=== PATIENT | female | born 1980 | race African-American/Black ===

== ENCOUNTER 2020-05-16 13:22 | Inpatient (IN) | payer MEDICAID ==
[~2020-05-16] VITALS: Ht 170.2 cm; Wt 81.6 kg
[~2020-05-16 13:22] MED LIST: ALBU18; ATOM25CA; DIPH25CA6; FLUO40CA
[2020-05-16] MEDS ORDERED: IPRATROPIUM BROM 0.5 MG/2.5ML INH SOL NEB ONE (13:30)
[2020-05-16] MEDS ORDERED: methylPREDNISolone SOD SUCC 125 MG/2 ML VL IV ONE (13:30)
[2020-05-16] MEDS ORDERED: cefTRIAXone 1GM/50ML D5W 50 ML IV ONE (13:30)
[2020-05-16] MEDS ORDERED: ALBUTEROL SULF 2.5 MG/0.5ML(0.5%) NEB SOLN NEB ONE (13:30)
[2020-05-16] MEDS ORDERED: SODIUM CHLORIDE 0.9% 1,000 ML IV ONE (13:30)
[2020-05-16] MEDS ORDERED: MAGNESIUM SULFATE 1GM/100ML 100 ML IV ONE (14:00)
[2020-05-16] MEDS ORDERED: LORazepam 2MG/ML-1ML VIAL IV ONE (14:30)
[2020-05-16 15:16] LABS: Basophils # (auto) 0 10 ^3/uL (0-0.2); Basophils % (auto) 0.2 % (0.0-2.0); Eosinophils # (auto) 0 10 ^3/uL (0-0.8); Eosinophils % (auto) 0.9 % (0.0-7.0); Hematocrit 38.3 % (36.0-46.0); Hemoglobin 12.9 g/dL (12.2-16.2); Lymphocytes # (auto) 1.6 10 ^3/uL (0.4-5.4); Lymphocytes % (auto) 34.4 % (10.0-50.0); Mean Corpuscular Hemoglobin 30.8 pg (28.0-32.0); Mean Corpuscular Hgb Conc. 33.6 g/dL (32.0-36.0); Mean Corpuscular Volume 91.5 fL (80.0-100.0); Monocytes # (auto) 0.5 10 ^3/uL (0-1.3); Monocytes % (auto) 10.5 % (0.0-12.0); Neutrophils # (auto) 2.5 10 ^3/uL (1.6-8.6); Platelet Count (auto) 234 10^3/uL (140-450); Red Blood Cells 4.19 10^6/uL (4.0-5.20); Red Cell Distribution Width 13.9 % (11.8-14.3); White Blood Cell 4.6 10^3/uL (4.4-10.8)
[2020-05-16 15:32] LABS: Alanine Aminotransferase 54 U/L (13-56); Albumin 3.6 g/dL (3.4-5.0); Anion Gap 11 (5-15); Aspartate Aminotransferase 73 U/L (15-37); BUN/Creatinine Ratio 6.2; Blood Urea Nitrogen 4 mg/dL (7-18); Calcium 8.1 mg/dL (8.5-10.1); Carbon Dioxide 21 mmol/L (21-32); Chloride 107 mmol/L (98-107); GFR African American 129 mL/min; GFR Non-African American 107 mL/min; Glucose 94 mg/dL (74-106); Sodium 139 mmol/L (136-145)
[2020-05-16 15:37] LABS: Alkaline Phosphatase 85 U/L (45-117); Bilirubin, Total 0.2 mg/dL (0.2-1.0); Total Protein 7.8 g/dL (6.4-8.2)
[2020-05-16 15:44] LABS: Potassium 2.9 mmol/L (3.5-5.1)
[2020-05-16] MEDS ORDERED: POTASSIUM EFFERVESENT TAB 25 MEQ PO ONE (16:00)
[2020-05-16] MEDS ORDERED: ACETAMINOPHEN 500 MG TAB PO PRN (16:45)
[2020-05-16] MEDS ORDERED: ALBUTEROL SULF HFA 90MCG INH 200DOSE IN PRN (16:45)
[2020-05-16 19:09] LABS: Magnesium 2.1 mg/dL (1.6-2.6)
[2020-05-16 19:18] LABS: CRP High Sensitivity 2.32 mg/dL (< 0.3)
[2020-05-16] MEDS ORDERED: MORPHINE SULF INJ 2 MG/ML SYRINGE 1ML IV PRN (20:00)
[2020-05-16] MEDS ORDERED: NITROGLYCERIN 0.4 MG SL TAB SL PRN (20:00)
[2020-05-16 20:20] LABS: Urine Bacteria FEW /hpf (None Seen); Urine Blood 3+ /uL (Negative); Urine Specific Gravity 1.005 (1.001-1.035); Urine WBC <1 /hpf (0 - 5)
[2020-05-16] MEDS: FAMOTIDINE 20 MG TAB PO SCH (21:55)
[2020-05-16] MEDS: ENOXAPARIN SOD 40 MG/0.4 ML SYRINGE SC SCH (21:56)
[2020-05-16] MEDS: DOXYCYCLINE 100MG/250ML 250 ML IV SCH (21:56)
[2020-05-16] MEDS: BUDESONIDE (INHALATION) 180 MCG IH IN SCH (22:00)
[2020-05-17] MEDS: HYDROcodone-ACET 5/325MG TAB PO PRN ×4 (00:32→21:01)
[2020-05-17] MEDS: BUDESONIDE (INHALATION) 180 MCG IH IN SCH (06:10)
[2020-05-17 06:29] LABS: Basophils # (auto) 0 10 ^3/uL (0-0.2); Basophils % (auto) 0.1 % (0.0-2.0); Eosinophils # (auto) 0 10 ^3/uL (0-0.8); Hematocrit 36.1 % (36.0-46.0); Hemoglobin 12.1 g/dL (12.2-16.2); Lymphocytes # (auto) 0.5 10 ^3/uL (0.4-5.4); Lymphocytes % (auto) 6.8 % (10.0-50.0); Mean Corpuscular Hemoglobin 30.4 pg (28.0-32.0); Mean Corpuscular Hgb Conc. 33.4 g/dL (32.0-36.0); Mean Corpuscular Volume 91.1 fL (80.0-100.0); Monocytes # (auto) 0.2 10 ^3/uL (0-1.3); Monocytes % (auto) 2.5 % (0.0-12.0); Neutrophils # (auto) 6.7 10 ^3/uL (1.6-8.6); Neutrophils % (auto) 90.6 % (37.0-80.0); Platelet Count (auto) 239 10^3/uL (140-450); Red Blood Cells 3.96 10^6/uL (4.0-5.20); Red Cell Distribution Width 13.9 % (11.8-14.3); White Blood Cell 7.4 10^3/uL (4.4-10.8)
[2020-05-17 06:55] LABS: Albumin 3.1 g/dL (3.4-5.0)
[2020-05-17 07:27] LABS: BUN/Creatinine Ratio 7.6; Calcium 8.4 mg/dL (8.5-10.1)
[2020-05-17 07:35] LABS: Bilirubin, Total 0.2 mg/dL (0.2-1.0); Total Protein 7.2 g/dL (6.4-8.2)
[2020-05-17] MEDS ORDERED: CHOLECALCIFEROL (VITD3) 2,000 UNIT CAP PO SCH (10:00)
[2020-05-17] MEDS ORDERED: ASCORBIC ACID 1,000 MG TAB PO SCH (10:00)
[2020-05-17] MEDS ORDERED: DexAMETHasone SOD PHOS 10MG/1ML VIAL INJ IV SCH (10:00)
[2020-05-17] MEDS ORDERED: ZINC SULFATE 220mg CAP or TAB PO SCH (10:00)
[2020-05-17] MEDS: FAMOTIDINE 20 MG TAB PO SCH ×2 (12:56→22:00)
[2020-05-17] MEDS: DOXYCYCLINE 100MG/250ML 250 ML IV SCH (12:56)
[2020-05-17] MEDS: ENOXAPARIN SOD 40 MG/0.4 ML SYRINGE SC SCH ×2 (13:40→22:00)
[2020-05-17] MEDS ORDERED: IPRATROPIUM BROM 0.5 MG/2.5ML INH SOL NEB SCH (14:00)
[2020-05-17] MEDS ORDERED: ALBUTEROL SULF 2.5 MG/0.5ML(0.5%) NEB SOLN NEB SCH (14:00)
[2020-05-17] MEDS: methylPREDNISolone SOD SUCC 40 MG/ML VL IV SCH (18:17)
[2020-05-17] MEDS: ALPRAZolam 0.5 MG TAB PO PRN (20:06)
[2020-05-17] MEDS ORDERED: ALBUTEROL SULF 2.5 MG/0.5ML(0.5%) NEB SOLN NEB PRN (22:00)
[2020-05-17] MEDS ORDERED: IPRATROPIUM BROM 0.5 MG/2.5ML INH SOL NEB PRN (22:00)
[2020-05-18] MEDS: methylPREDNISolone SOD SUCC 40 MG/ML VL IV SCH ×4 (06:00→18:00)
[2020-05-18] MEDS: ENOXAPARIN SOD 40 MG/0.4 ML SYRINGE SC SCH (09:49)
[2020-05-18] MEDS: FAMOTIDINE 20 MG TAB PO SCH (09:49)
[2020-05-18] MEDS: ALPRAZolam 0.5 MG TAB PO PRN (12:06)
[2020-05-18] MEDS ORDERED: ALBU1.257 IN (16:16)
[2020-05-18] MEDS ORDERED: DOXY-338 PO (16:16)
[2020-05-18] MEDS ORDERED: PRED20TA2 PO (16:16)
[2020-05-18] MEDS ORDERED: FAMO20TA10 PO (16:16)
[2020-05-18] MEDS ORDERED: IPRIH IN (16:16)
[2020-05-18] MEDS ORDERED: MONT10TA23 PO (16:17)
[2020-05-18 16:49] VITALS: BP 126/81
== END 2020-05-18 18:14 | disposition home or self-care (01) | DRG 141 ==
LOC: ER 13:22 → EDBD 13:22 → OVERFLOW 13:23
PROVIDERS: ADMIT Hospitalist; ATTEND Hospitalist
PROC: 5A09357 Assistance with Respiratory Ventilation, Less than 24 Consecutive Hours, Continuous Positive Airway Pressure (ICD-10-PCS; principal; 2020-05-16)
DX: J45.51 Severe persistent asthma with (acute) exacerbation (principal); J96.00 Acute respiratory failure, unspecified whether with hypoxia or hypercapnia; E87.6 Hypokalemia; F41.9 Anxiety disorder, unspecified; J98.11 Atelectasis; Z83.3 Family history of diabetes mellitus; G89.29 Other chronic pain; E66.9 Obesity, unspecified; Z68.28 Body mass index [BMI] 28.0-28.9, adult; Z20.828 Contact with and (suspected) exposure to other viral communicable diseases
CPT/HCPCS: 36415; 36600; 71045; 74176; 80053; 81001; 82728; 82805; 83036; 83735; 84484; 85025; 85379; 86141; 87426; 87804; 94640; 94660; 96365; 96367; 96375; 99291; G0378; J0696; J3490

== ENCOUNTER 2023-11-12 21:41 | Inpatient (IN) | payer MEDICAID ==
[~2023-11-12] VITALS: Ht 167.6 cm; Wt 79.9 kg
[~2023-11-12 21:41] MED LIST changes: +ALBU1.258 IN; +DIPH-753; -DIPH25CA6; +DOXY-447 PO; +FAMO20TA10 PO; +IPRIH IN; +MONT10TA23 PO; +PRED20TA2 PO
[2023-11-12] MEDS: IPRATROPIUM BROM 0.5 MG/2.5ML INH SOL ONE (22:01)
[2023-11-12] MEDS: LORazepam 2MG/ML-1ML VIAL ONE (22:02)
[2023-11-12] MEDS: LORazepam 2MG/ML-1ML VIAL IV ONE (22:02)
[2023-11-12] MEDS: ALBUTEROL SULF 2.5 MG/0.5ML(0.5%) NEB SOLN ONE (22:02)
[2023-11-12] MEDS: MAGNESIUM SULFATE 1GM/100ML 100 ML IV ONE (22:10)
[2023-11-12] MEDS: methylPREDNISolone SOD SUCC 125 MG/2 ML VL IV ONE (22:11)
[2023-11-12 22:20] VITALS: BP 150/91; PULSE 123; O2SAT 100
[2023-11-12 22:28] VITALS: PULSE 136; RESP 36; O2SAT 100
[2023-11-12] MEDS: ALBUTEROL SULF 2.5 MG/0.5ML(0.5%) NEB SOLN NEB ONE (22:43)
[2023-11-12] MEDS: IPRATROPIUM BROM 0.5 MG/2.5ML INH SOL NEB ONE (22:44)
[2023-11-12 22:50] LABS: Base Excess -1.5 mmol/L (-2.0-2.0)
[2023-11-12 23:01] LABS: Hematocrit 36.8 % (36.0-46.0); Hemoglobin 12.1 g/dL (12.2-16.2); Mean Corpuscular Hemoglobin 28.6 pg (28.0-32.0); Mean Corpuscular Hgb Conc. 32.8 g/dL (32.0-36.0); Mean Corpuscular Volume 87.3 fL (80.0-100.0); Red Blood Cells 4.22 10^6/uL (4.0-5.20); Red Cell Distribution Width 15.7 % (11.8-14.3); White Blood Cell 3.9 10^3/uL (4.4-10.8)
[2023-11-12 23:03] LABS: Band Neutrophils % (manual) 0; Basophils % (manual) 0 (0.0-2.0); Blast Cells 0; Metamyelocytes % 0; Myelocytes % 0; Promyelocytes % 0; Reactive Lymphocytes 0
[2023-11-12 23:19] LABS: Alanine Aminotransferase 25 U/L (7-40); Albumin 4.2 g/dL (3.2-4.8); Alkaline Phosphatase 111 U/L (46-116); Anion Gap 13 (5-15); Aspartate Aminotransferase 70 U/L (13-40); BUN/Creatinine Ratio 7.7 (10.0-20.0); Bilirubin, Total 0.4 mg/dL (0.2-1.0); Blood Urea Nitrogen 5 mg/dL (9-23); Calcium 9.1 mg/dL (8.7-10.4); Carbon Dioxide 20 mmol/L (20-30); Chloride 106 mmol/L (98-107); Glucose 124 mg/dL (74-106); Potassium 2.9 mmol/L (3.5-5.1); Sodium 139 mmol/L (136-145)
[2023-11-12 23:20] LABS: Total Protein 7.4 g/dL (5.7-8.2)
[2023-11-12 23:59] LABS: Eosinophils % (manual) 2 (0-7); Lymphocytes % (manual) 61 (10.0-50.0); Monocytes % (manual) 10 (0-12)
[2023-11-13] VITALS (13 sets, daily range): BP systolic 147–188; BP diastolic 71–108; PULSE 89–130; RESP 16–22; TEMP 97.5–98.2; O2SAT 98–100
[2023-11-13] LABS: Platelet Estimate Adequate
[2023-11-13] MEDS ORDERED: ALBUTEROL SULF 2.5 MG/0.5ML(0.5%) NEB SOLN NEB PRN (01:00)
[2023-11-13] MEDS ORDERED: ONDANSETRON HCL 4 MG/2 ML VIAL IV PRN (01:00)
[2023-11-13] MEDS ORDERED: MORPHINE SULFATE INJ 2 MG/ml SYRG IV PRN (01:00)
[2023-11-13] MEDS ORDERED: NITROGLYCERIN 0.4 MG SL TAB SL PRN (01:00)
[2023-11-13] MEDS ORDERED: IPRATROPIUM BROM 0.5 MG/2.5ML INH SOL NEB PRN (01:00)
[2023-11-13 01:32] LABS: Urine Bacteria FEW /hpf (None Seen); Urine Blood Negative /uL (Negative); Urine Clarity Turbid (Clear); Urine Color Light-Yellow (Yellow); Urine Hyaline Cast FEW /lpf (0 - 2); Urine Protein, UAD TRACE (Negative); Urine Specific Gravity 1.021 (1.001-1.035); Urine Urobilinogen Normal (Negative); Urine WBC 7 /hpf (0 - 5); Urine pH 5.5 (5.0-9.0)
[2023-11-13] MEDS: POTASSIUM CHL 20 Meq TABLET PO ONE (01:47)
[2023-11-13] MEDS: TEMAZEPAM 15 MG CAP PO PRN (01:51)
[2023-11-13] MEDS: dilTIAZem 25 MG/5 ML VIAL IV ONE (02:13)
[2023-11-13] MEDS: LORazepam 2MG/ML-1ML VIAL IV ONE (02:16)
[2023-11-13] MEDS: HYDROcodone-ACET 5/325MG TAB PO PRN (04:42)
[2023-11-13] MEDS: chlordiazePOXIDE HCL 25 MG CAP PO PRN (05:50)
[2023-11-13] MEDS: methylPREDNISolone SOD SUCC 40 MG/ML VL IV SCH (09:18)
[2023-11-13] MEDS: MULTIPLE VITAMIN TAB PO ONE (11:18)
[2023-11-13] MEDS: FOLIC ACID 1 MG TAB PO ONE (11:18)
[2023-11-13] MEDS: LORazepam 2MG/ML-1ML VIAL IV PRN (11:19)
[2023-11-13 11:46] LABS: Amphetamine Screen, Urine Neg (NEGATIVE); Barbiturate Scree,Urine Neg (NEGATIVE); Benzodiazephine Screen, Urine Pos (NEGATIVE); Cannabinoid Screen, Urine Neg (NEGATIVE); Cocaine Screen, Urine Neg (NEGATIVE); Opiate Scree,Urine Neg (NEGATIVE); Phencyclidine Screen, Urine Neg (NEGATIVE)
[2023-11-13 12:00] LABS: Basophils # (auto) 0 10 ^3/uL (0-0.2); Basophils % (auto) 0.1 % (0.0-2.0); Eosinophils # (auto) 0 10 ^3/uL (0-0.8); Hematocrit 38.3 % (36.0-46.0); Hemoglobin 12.5 g/dL (12.2-16.2); Lymphocytes # (auto) 0.1 10 ^3/uL (0.4-5.4); Lymphocytes % (auto) 5.1 % (10.0-50.0); Mean Corpuscular Hemoglobin 28.6 pg (28.0-32.0); Mean Corpuscular Hgb Conc. 32.5 g/dL (32.0-36.0); Monocytes # (auto) 0 10 ^3/uL (0-1.3); Monocytes % (auto) 0.8 % (0.0-12.0); Neutrophils # (auto) 2.3 10 ^3/uL (1.6-8.6); Red Blood Cells 4.35 10^6/uL (4.0-5.20); Red Cell Distribution Width 15.7 % (11.8-14.3); White Blood Cell 2.4 10^3/uL (4.4-10.8)
[2023-11-13 12:18] LABS: Alanine Aminotransferase 26 U/L (7-40); Albumin 4.6 g/dL (3.2-4.8); Alkaline Phosphatase 106 U/L (46-116); Anion Gap 8 (5-15); Aspartate Aminotransferase 49 U/L (13-40); Bilirubin, Total 0.8 mg/dL (0.2-1.0); CRP High Sensitivity 0.43 mg/dL (<1.0); Calcium 10.1 mg/dL (8.5-10.1); Carbon Dioxide 24 mmol/L (20-30); Chloride 104 mmol/L (98-107); Glucose 159 mg/dL (74-106); Potassium 4.3 mmol/L (3.5-5.1); Sodium 136 mmol/L (136-145); Total Protein 7.8 g/dL (5.7-8.2)
[2023-11-13 12:27] LABS: BUN/Creatinine Ratio 7.8 (10.0-20.0); Blood Urea Nitrogen < 5 mg/dL (9-23)
[2023-11-13] MEDS: THIAMINE HCL 100 MG TAB PO ONE (13:17)
[2023-11-13] MEDS: HYDROcodone-ACET 10/325MG TAB PO PRN (13:17)
[2023-11-13] MEDS: chlordiazePOXIDE HCL 25 MG CAP PO SCH (14:35)
[2023-11-13] MEDS: cloNIDine HCL 0.1 MG TAB PO PRN (14:36)
[2023-11-13] MEDS: PANTOPRAZOLE 40 MG TAB PO ONE (17:14)
[2023-11-13] MEDS: LISINOPRIL 5 MG TAB PO ONE (17:15)
[2023-11-13] MEDS ORDERED: FOLIC ACID 1 MG, MAGNESIUM SULF SDV 50% 8 MEQ, MULTIPLE VITAMIN 10 ML, THIAMINE INJ 100... INJ SCH (18:00)
[2023-11-13] MEDS: amLODIPine BESYLATE 5 MG TAB PO ONE (18:49)
[2023-11-13] MEDS: hydrALAZINE HCL 20 MG/ML VL IV PRN (18:49)
[2023-11-13] MEDS: FLEET ENEMA(ADULT) 135 ML PR ONE (22:45)
[2023-11-14 01:00] VITALS: BP 120/92; PULSE 108; RESP 20; TEMP 98.1; O2SAT 100
[2023-11-14 05:00] VITALS: BP 149/88; PULSE 116; RESP 18; TEMP 98.4; O2SAT 100
[2023-11-14 05:57] LABS: Basophils # (auto) 0 10 ^3/uL (0-0.2); Basophils % (auto) 0.1 % (0.0-2.0); Eosinophils # (auto) 0 10 ^3/uL (0-0.8); Hemoglobin 13.4 g/dL (12.2-16.2); Lymphocytes # (auto) 1.1 10 ^3/uL (0.4-5.4); Lymphocytes % (auto) 15.3 % (10.0-50.0); Mean Corpuscular Hemoglobin 28.3 pg (28.0-32.0); Mean Corpuscular Hgb Conc. 32.7 g/dL (32.0-36.0); Mean Corpuscular Volume 86.4 fL (80.0-100.0); Monocytes % (auto) 13.8 % (0.0-12.0); Neutrophils # (auto) 4.9 10 ^3/uL (1.6-8.6); Neutrophils % (auto) 70.8 % (37.0-80.0); Nucleated Red Blood Cells % 0.2 %; Red Blood Cells 4.74 10^6/uL (4.0-5.20); Red Cell Distribution Width 15.9 % (11.8-14.3); White Blood Cell 6.9 10^3/uL (4.4-10.8)
[2023-11-14] MEDS: PANTOPRAZOLE 40 MG TAB PO SCH (06:02)
[2023-11-14 06:08] LABS: Chloride 100 mmol/L (98-107); Potassium 3.2 mmol/L (3.5-5.1); Sodium 134 mmol/L (136-145)
[2023-11-14 06:09] LABS: Anion Gap 11 (5-15); Carbon Dioxide 23 mmol/L (20-30)
[2023-11-14 06:14] LABS: Glucose 83 mg/dL (74-106)
[2023-11-14 06:15] LABS: LDL Cholesterol 369 mg/dL (< 100); Magnesium 1.9 mg/dL (1.6-2.6); Triglycerides 149 mg/dL (< 150)
[2023-11-14 06:16] LABS: Blood Urea Nitrogen < 5 mg/dL (9-23); Cholesterol 473 mg/dL (< 200); HDL Cholesterol 111 mg/dL (40-59)
[2023-11-14] MEDS: POTASSIUM EFFERVESENT TAB 25 MEQ PO ONE (06:58)
[2023-11-14 07:22] LABS: Free T3 4.49 pg/mL (2.3-4.2)
[2023-11-14 07:23] LABS: Free T4 (Free Thyroxine) 1.12 ng/dL (0.89-1.76)
[2023-11-14 08:00] VITALS: PULSE 104; PULSE 116; RESP 19; O2SAT 95
[2023-11-14 09:07] VITALS: BP 138/99; PULSE 116; RESP 19; TEMP 98.6; O2SAT 95
[2023-11-14] MEDS: MULTIPLE VITAMIN TAB PO SCH (09:55)
[2023-11-14] MEDS: DOCUSATE SOD 100 MG CAP PO SCH (09:56)
[2023-11-14] MEDS: chlordiazePOXIDE HCL 25 MG CAP PO SCH (09:56)
[2023-11-14] MEDS: THIAMINE HCL 100 MG TAB PO SCH (09:56)
[2023-11-14] MEDS: FOLIC ACID 1 MG TAB PO SCH (09:56)
[2023-11-14] MEDS: IBUPROFEN 600 MG TAB PO PRN (10:48)
[2023-11-14 10:50] VITALS: O2SAT 99
[2023-11-14] MEDS ORDERED: THIA100T10 PO (12:04)
[2023-11-14] MEDS ORDERED: FOLI-119 PO (12:04)
[2023-11-14] MEDS ORDERED: MULTTAB99 PO (12:04)
[2023-11-14] MEDS ORDERED: RISP1TAB33 PO (12:14)
[2023-11-14] MEDS ORDERED: DOXE25CA2 PO (12:14)
[2023-11-14 12:24] VITALS: BP 138/99; PULSE 116; RESP 19; TEMP 98.6; O2SAT 95
[2023-11-14] MEDS ORDERED: risperiDONE 1 MG TAB PO SCH (22:00)
== END 2023-11-14 12:50 | disposition home or self-care (01) | DRG 141 ==
LOC: EDBD 21:41 → ER 21:41 → TELE 11-13 01:03 → TELE-WESTW 11-13 04:20
PROVIDERS: ADMIT Internal Medicine Pulmonary Disease; ATTEND Internal Medicine Pulmonary Disease
PROC: 5A09357 Assistance with Respiratory Ventilation, Less than 24 Consecutive Hours, Continuous Positive Airway Pressure (ICD-10-PCS; principal; 2023-11-12)
DX: J45.901 Unspecified asthma with (acute) exacerbation (principal); J96.21 Acute and chronic respiratory failure with hypoxia; G92.8 Other toxic encephalopathy; R65.10 Systemic inflammatory response syndrome (SIRS) of non-infectious origin without acute organ dysfunction; K59.00 Constipation, unspecified; G89.4 Chronic pain syndrome; F41.9 Anxiety disorder, unspecified; F10.130 Alcohol abuse with withdrawal, uncomplicated; E87.6 Hypokalemia; R74.01 Elevation of levels of liver transaminase levels; F32.A Depression, unspecified; Z81.8 Family history of other mental and behavioral disorders; Z79.899 Other long term (current) drug therapy; Y90.0 Blood alcohol level of less than 20 mg/100 ml
CPT/HCPCS: 36415; 36600; 71045; 80048; 80053; 80061; 80307; 81001; 82805; 83735; 84439; 84443; 84481; 84484; 85007; 85025; 85027; 85379; 86141; 87086; 93005; 93970; 94640; 94660; 96365; 96375; 96376; G0378

== ENCOUNTER 2023-12-08 13:30 | Inpatient (IN) | payer MEDICAID ==
[~2023-12-08] VITALS: Ht 170.2 cm; Wt 82.5 kg
[~2023-12-08 13:30] MED LIST changes: -ATOM25CA; +DOXE25CA2 PO; -DOXY-447 PO; +FOLI-119 PO; -MONT10TA23 PO; +MULTTAB99 PO; -PRED20TA2 PO; +RISP1TAB33 PO; +THIA100T10 PO
[2023-12-08 14:02] LABS: Urine Bacteria None Seen /hpf (None Seen)
[2023-12-08 14:14] LABS: Basophils # (auto) 0 10 ^3/uL (0-0.2); Basophils % (auto) 0.4 % (0.0-2.0); Eosinophils # (auto) 0 10 ^3/uL (0-0.8); Eosinophils % (auto) 0.1 % (0.0-7.0); Hematocrit 38.2 % (36.0-46.0); Hemoglobin 12.5 g/dL (12.2-16.2); Lymphocytes # (auto) 0.6 10 ^3/uL (0.4-5.4); Lymphocytes % (auto) 23.2 % (10.0-50.0); Mean Corpuscular Hemoglobin 28.4 pg (28.0-32.0); Mean Corpuscular Hgb Conc. 32.9 g/dL (32.0-36.0); Mean Corpuscular Volume 86.4 fL (80.0-100.0); Monocytes # (auto) 0.1 10 ^3/uL (0-1.3); Monocytes % (auto) 2.7 % (0.0-12.0); Neutrophils # (auto) 1.8 10 ^3/uL (1.6-8.6); Neutrophils % (auto) 73.6 % (37.0-80.0); Nucleated Red Blood Cells % 0.1 %; Red Blood Cells 4.42 10^6/uL (4.0-5.20); Red Cell Distribution Width 17.4 % (11.8-14.3); White Blood Cell 2.5 10^3/uL (4.4-10.8)
[2023-12-08] MEDS: SODIUM CHLORIDE 0.9% 1,000 ML IVB ONE (14:15)
[2023-12-08 14:19] LABS: Chloride 107 mmol/L (98-107); Potassium 3.9 mmol/L (3.5-5.1); Sodium 140 mmol/L (136-145)
[2023-12-08 14:20] LABS: Anion Gap 18 (5-15); Calcium 9.5 mg/dL (8.7-10.4); Carbon Dioxide 15 mmol/L (20-30)
[2023-12-08 14:24] LABS: Urine Blood Negative /uL (Negative); Urine Clarity Turbid (Clear); Urine Color Yellow (Yellow); Urine Hyaline Cast MANY /lpf (0 - 2); Urine Mucus FEW (None Seen); Urine Protein, UAD 1+ (Negative); Urine Specific Gravity 1.028 (1.001-1.035); Urine Urobilinogen Normal (Negative); Urine WBC 13 /hpf (0 - 5); Urine pH 7.5 (5.0-9.0)
[2023-12-08 14:25] LABS: Glucose 122 mg/dL (74-106)
[2023-12-08 14:26] LABS: BUN/Creatinine Ratio 4.9 (10.0-20.0); Blood Urea Nitrogen < 5 mg/dL (9-23)
[2023-12-08] MEDS: ONDANSETRON HCL 4 MG/2 ML VIAL IV ONE ×2 (14:28→20:43)
[2023-12-08] MEDS: MORPHINE SULFATE 4 MG/ML SYR/VIAL IV ONE ×2 (14:29→20:44)
[2023-12-08] MEDS: PANTOPRAZOLE 40 MG/10 ML VIAL INJ IV SCH (21:04)
[2023-12-08] MEDS: LACTATED RINGER'S 1,000 ML IV ONE (21:05)
[2023-12-08] MEDS: cefTRIAXone 1GM/50ML D5W 50 ML IV SCH (21:06)
[2023-12-08 21:12] VITALS: PULSE 83; RESP 18; O2SAT 98
[2023-12-08] MEDS: metroNIDAZOLE 500MG/100ML 100 ML IV SCH (21:43)
[2023-12-08] MEDS: SODIUM CHLOR 0.9% PF (SALINE LOCK) 10ML VIAL/SYR IV SCH (22:03)
[2023-12-09] VITALS (7 sets, daily range): BP systolic 124–159; BP diastolic 70–96; PULSE 75–86; RESP 12–22; TEMP 97.6–98.4; O2SAT 94–100
[2023-12-09] MEDS: ONDANSETRON HCL 4 MG/2 ML VIAL IV PRN (00:40)
[2023-12-09] MEDS: HYDROcodone-ACET 5/325MG TAB PO PRN (00:55)
[2023-12-09] MEDS: DOCUSATE SOD 100 MG CAP PO PRN (10:39)
[2023-12-09] MEDS: ENOXAPARIN SOD 40 MG/0.4 ML SYRINGE SC SCH (10:40)
[2023-12-09] MEDS: diphenhdrAMINE HCL 50 MG/1 ML VL IV PRN (13:20)
[2023-12-09] MEDS: LORazepam 2MG/ML-1ML VIAL IV PRN (14:27)
[2023-12-09 17:17] LABS: Amphetamine Screen, Urine Neg (NEGATIVE)
[2023-12-09 17:19] LABS: Barbiturate Scree,Urine Neg (NEGATIVE); Benzodiazephine Screen, Urine Pos (NEGATIVE); Cannabinoid Screen, Urine Neg (NEGATIVE); Cocaine Screen, Urine Neg (NEGATIVE); Opiate Scree,Urine Pos (NEGATIVE); Phencyclidine Screen, Urine Neg (NEGATIVE)
[2023-12-09] MEDS: THIAMINE HCL 100 MG TAB PO ONE (20:22)
[2023-12-09] MEDS: FOLIC ACID 1 MG TAB PO ONE (20:22)
[2023-12-09] MEDS: chlordiazePOXIDE HCL 25 MG CAP PO SCH (20:23)
[2023-12-09] MEDS: FOLIC ACID 1 MG, MAGNESIUM SULF SDV 50% 8 MEQ, MULTIPLE VITAMIN 10 ML, THIAMINE INJ 100... INJ SCH (22:00)
[2023-12-09] MEDS: IPRATROPIUM BROM 0.5 MG/2.5ML INH SOL NEB SCH (22:00)
[2023-12-09] MEDS: ALBUTEROL SULF 2.5 MG/0.5ML(0.5%) NEB SOLN NEB SCH (22:00)
[2023-12-10] VITALS (14 sets, daily range): BP systolic 122–146; BP diastolic 75–99; PULSE 65–92; RESP 14–20; TEMP 97.6–98.9; O2SAT 97–100
[2023-12-10 07:04] LABS: Basophils # (auto) 0 10 ^3/uL (0-0.2); Basophils % (auto) 0.6 % (0.0-2.0); Eosinophils # (auto) 0.1 10 ^3/uL (0-0.8); Eosinophils % (auto) 2.5 % (0.0-7.0); Hematocrit 33.9 % (36.0-46.0); Hemoglobin 11.3 g/dL (12.2-16.2); Lymphocytes # (auto) 0.9 10 ^3/uL (0.4-5.4); Mean Corpuscular Hemoglobin 29.1 pg (28.0-32.0); Mean Corpuscular Hgb Conc. 33.2 g/dL (32.0-36.0); Mean Corpuscular Volume 87.6 fL (80.0-100.0); Monocytes # (auto) 0.3 10 ^3/uL (0-1.3); Neutrophils % (auto) 42.9 % (37.0-80.0); Nucleated Red Blood Cells % 0.1 %; Red Blood Cells 3.87 10^6/uL (4.0-5.20); Red Cell Distribution Width 16.8 % (11.8-14.3); White Blood Cell 2.3 10^3/uL (4.4-10.8)
[2023-12-10 08:00] LABS: Alanine Aminotransferase 35 U/L (7-40); Albumin 3.8 g/dL (3.2-4.8); Alkaline Phosphatase 101 U/L (46-116); Anion Gap 6 (5-15); Aspartate Aminotransferase 61 U/L (13-40); BUN/Creatinine Ratio 8.5 (10.0-20.0); Bilirubin, Total 0.7 mg/dL (0.2-1.0); Blood Urea Nitrogen < 5 mg/dL (9-23); Calcium 8.8 mg/dL (8.7-10.4); Carbon Dioxide 28 mmol/L (20-30); Chloride 103 mmol/L (98-107); Glucose 83 mg/dL (74-106); Potassium 3.4 mmol/L (3.5-5.1); Sodium 137 mmol/L (136-145); Total Protein 6.2 g/dL (5.7-8.2)
[2023-12-10] MEDS: THIAMINE HCL 100 MG TAB PO SCH (10:17)
[2023-12-10] MEDS: FOLIC ACID 1 MG TAB PO SCH (10:17)
[2023-12-10] MEDS: chlordiazePOXIDE HCL 25 MG CAP PO SCH (10:17)
[2023-12-10] MEDS: LACTULOSE 20Gm/30ML SOLN PO ONE (13:51)
[2023-12-10] MEDS: POTASSIUM EFFERVESENT TAB 25 MEQ PO ONE (13:53)
[2023-12-10] MEDS: FLEET ENEMA(ADULT) 135 ML PR ONE (13:53)
[2023-12-10] MEDS: LACTULOSE 20Gm/30ML SOLN PO SCH (21:27)
[2023-12-10] MEDS: ACETAMINOPHEN 325 MG TAB PO PRN (21:34)
[2023-12-11] VITALS (12 sets, daily range): BP systolic 123–146; BP diastolic 70–87; PULSE 68–84; RESP 14–20; TEMP 97.7–98.5; O2SAT 92–100
[2023-12-11] MEDS: THROAT LOZENGES(CEPASTAT) MT PRN (05:02)
[2023-12-11 06:31] LABS: Chloride 103 mmol/L (98-107); Potassium 3.6 mmol/L (3.5-5.1); Sodium 137 mmol/L (136-145)
[2023-12-11 06:32] LABS: Anion Gap 7 (5-15); Calcium 8.4 mg/dL (8.7-10.4); Carbon Dioxide 27 mmol/L (20-30)
[2023-12-11 06:35] LABS: Basophils # (auto) 0 10 ^3/uL (0-0.2); Basophils % (auto) 0.4 % (0.0-2.0); Eosinophils # (auto) 0.1 10 ^3/uL (0-0.8); Eosinophils % (auto) 2.3 % (0.0-7.0); Hemoglobin 10.3 g/dL (12.2-16.2); Lymphocytes # (auto) 0.5 10 ^3/uL (0.4-5.4); Mean Corpuscular Hgb Conc. 33.2 g/dL (32.0-36.0); Mean Corpuscular Volume 87.2 fL (80.0-100.0); Monocytes # (auto) 0.3 10 ^3/uL (0-1.3); Monocytes % (auto) 9.3 % (0.0-12.0); Neutrophils # (auto) 2.6 10 ^3/uL (1.6-8.6); Nucleated Red Blood Cells % 0.1 %; Red Blood Cells 3.55 10^6/uL (4.0-5.20); Red Cell Distribution Width 17.2 % (11.8-14.3); White Blood Cell 3.6 10^3/uL (4.4-10.8)
[2023-12-11 06:37] LABS: Glucose 98 mg/dL (74-106)
[2023-12-11 06:38] LABS: BUN/Creatinine Ratio 8.6 (10.0-20.0); Blood Urea Nitrogen < 5 mg/dL (9-23)
[2023-12-11] MEDS: chlordiazePOXIDE HCL 25 MG CAP PO SCH (10:40)
[2023-12-11] MEDS: METOCLOPRAMIDE HCL 5MG/ml INJ 2ml VIAL IV ONE (10:49)
[2023-12-11] MEDS: METOCLOPRAMIDE HCL 5MG/ml INJ 2ml VIAL ONE (10:52)
[2023-12-11] MEDS ORDERED: METOCLOPRAMIDE HCL 5MG/ml INJ 2ml VIAL IV SCH (14:00)
[2023-12-11] MEDS: METOCLOPRAMIDE HCL 5MG/ml INJ 2ml VIAL IV SCH (14:00)
[2023-12-11] MEDS: LIDOCAINE VISCOUS 2% 15ML UD ONE (14:35)
[2023-12-11] MEDS: SUCRALFATE 1 GM/10 ML ORAL SUSP GT SCH (17:55)
[2023-12-11] MEDS: PANTOPRAZOLE 40 MG/10 ML VIAL INJ IV SCH (23:16)
[2023-12-12] VITALS (9 sets, daily range): BP systolic 121–144; BP diastolic 50–85; PULSE 67–93; RESP 16–20; TEMP 36.9; O2SAT 96–100
[2023-12-12 06:16] LABS: Basophils # (auto) 0 10 ^3/uL (0-0.2); Basophils % (auto) 0.3 % (0.0-2.0); Eosinophils # (auto) 0.1 10 ^3/uL (0-0.8); Eosinophils % (auto) 2.1 % (0.0-7.0); Hematocrit 30.2 % (36.0-46.0); Hemoglobin 10.2 g/dL (12.2-16.2); Lymphocytes # (auto) 0.8 10 ^3/uL (0.4-5.4); Lymphocytes % (auto) 25.5 % (10.0-50.0); Mean Corpuscular Hemoglobin 29.6 pg (28.0-32.0); Mean Corpuscular Hgb Conc. 33.6 g/dL (32.0-36.0); Monocytes # (auto) 0.5 10 ^3/uL (0-1.3); Monocytes % (auto) 15.1 % (0.0-12.0); Neutrophils # (auto) 1.8 10 ^3/uL (1.6-8.6); Nucleated Red Blood Cells % 0.1 %; Red Blood Cells 3.43 10^6/uL (4.0-5.20); Red Cell Distribution Width 17.1 % (11.8-14.3); White Blood Cell 3.1 10^3/uL (4.4-10.8)
[2023-12-12] MEDS: SUCRALFATE 1 GM/10 ML ORAL SUSP PO SCH (06:20)
[2023-12-12] MEDS: chlordiazePOXIDE HCL 25 MG CAP PO SCH (06:20)
[2023-12-12 06:28] LABS: Calcium 8.4 mg/dL (8.7-10.4); Chloride 106 mmol/L (98-107); Potassium 3.5 mmol/L (3.5-5.1); Sodium 140 mmol/L (136-145)
[2023-12-12 06:29] LABS: Anion Gap 8 (5-15); Carbon Dioxide 26 mmol/L (20-30)
[2023-12-12 06:34] LABS: Glucose 105 mg/dL (74-106)
[2023-12-12 06:35] LABS: BUN/Creatinine Ratio 9.4 (10.0-20.0); Blood Urea Nitrogen < 5 mg/dL (9-23)
[2023-12-12 08:54] LABS: Hepatitis B Surface Antigen Negative (Negative)
[2023-12-12] MEDS: metroNIDAZOLE 500MG/100ML 100 ML IV SCH (08:57)
[2023-12-12 09:14] LABS: Hepatitis A Ab IgM Negative
[2023-12-12 09:16] LABS: Hepatitis B Core IgM Negative; Hepatitis C Antibody Negative (Negative)
[2023-12-12] MEDS: POTASSIUM EFFERVESENT TAB 25 MEQ PO ONE (11:15)
[2023-12-12] MEDS ORDERED: PANT40T PO (12:04)
[2023-12-12] MEDS ORDERED: METR-344 PO (12:04)
[2023-12-12] MEDS ORDERED: SUCR1SUS26 PO (12:04)
[2023-12-12] MEDS ORDERED: SUCR1TAB PO (12:04)
[2023-12-12] MEDS ORDERED: PROPOFOL 10 MG/ML 20 ML IV ONE (15:29)
== END 2023-12-12 15:30 | disposition home or self-care (01) | DRG 254 ==
LOC: EDBD 13:30 → ER 13:36 → OVERFLOW 20:34 → CENTRAL 12-09 22:06 → EAST 12-11 08:05
PROVIDERS: ADMIT Internal Medicine Geriatric Medicine; ATTEND Internal Medicine Geriatric Medicine
PROC: 0DB68ZX Excision of Stomach, Via Natural or Artificial Opening Endoscopic, Diagnostic (ICD-10-PCS; 2023-12-11)
PROC: 0DB98ZX Excision of Duodenum, Via Natural or Artificial Opening Endoscopic, Diagnostic (ICD-10-PCS; principal; 2023-12-11 14:37)
DX: K62.89 Other specified diseases of anus and rectum (principal); D69.6 Thrombocytopenia, unspecified; K29.81 Duodenitis with bleeding; J45.901 Unspecified asthma with (acute) exacerbation; K21.9 Gastro-esophageal reflux disease without esophagitis; K29.70 Gastritis, unspecified, without bleeding; K25.9 Gastric ulcer, unspecified as acute or chronic, without hemorrhage or perforation; K59.00 Constipation, unspecified; N39.0 Urinary tract infection, site not specified; K44.9 Diaphragmatic hernia without obstruction or gangrene; K29.80 Duodenitis without bleeding; D72.819 Decreased white blood cell count, unspecified; E87.6 Hypokalemia; F10.239 Alcohol dependence with withdrawal, unspecified; Y90.9 Presence of alcohol in blood, level not specified; Z91.018 Allergy to other foods; Z82.49 Family history of ischemic heart disease and other diseases of the circulatory system
CPT/HCPCS: 36415; 74018; 74176; 76705; 80048; 80053; 80074; 80307; 80320; 81001; 83036; 84702; 85025; 86703; 87040; 87081; 87086; 93005; 94640; 96361; 96375; 96376; G0378; J2405; J2470; J2704; J3490